=== PATIENT | female | born 1985 | race Caucasian/White ===

== ENCOUNTER 2016-12-02 03:01 | Emergency (ER) | payer MEDICAID, OTHER ==
[2016-12-02] MEDS ORDERED: IBUPROFEN 600 MG TABLET ONE (03:37)
[2016-12-02] MEDS ORDERED: AMOX 875 MG/CLAV 125 MG 1 EACH TABLET ONE (03:37)
== END 2016-12-02 03:52 | disposition home or self-care (01) ==
LOC: ED 03:01
DX: H66.43 Suppurative otitis media, unspecified, bilateral (principal)
CPT/HCPCS: 99283 ×2; A9270 ×2